=== PATIENT | male | born 1955 | race Caucasian/White ===

== ENCOUNTER → 2021-09-23 12:32 | Outpatient (BNVA) | payer MEDICARE, MEDICAID, SELFPAY | PROVIDERS: Referring Provider Internal Medicine; Visit Provider Specialist | DX: G43.711 Chronic migraine without aura, intractable, with status migrainosus (principal); M54.81 Occipital neuralgia; M50.30 Other cervical disc degeneration, unspecified cervical region; Z99.81 Dependence on supplemental oxygen | CPT/HCPCS: 64405; 64450; 99204; J1030; J3490 ==